=== PATIENT | female | born 1975 | race African-American/Black ===

== ENCOUNTER 2016-04-26 13:55 | Emergency (ER) | payer OTHER ==
[~2016-04-26] VITALS: Ht 162.6 cm; Wt 78.0 kg
[~2016-04-26 13:55] MED LIST: AMIT25TA PO; AMOX500C PO; CARV3.12 PO; CIPR500T94 PO; CLIN-44 PO; CYCL5TAB PO; DYCL5POW MC; HYDR-971 PO; HYDR30CR61 TP; IBUP-1060 PO; LISI10TA2 PO; METR500T PO; ONDA4TAB10 SL; ORPH100T PO; POTA10TA31 PO; TRAM-29 PO; TRAM50TA PO
[2016-04-26 14:03] VITALS: BP 170/86
[2016-04-26] MEDS ORDERED: CLIN-44 PO (14:33)
--- NOTE | 2016-04-26 14:33 | PHYS DOC ---
Past Medical History Past Medical History: CHF, IBS Additional Past Medical Histor: LUPUS Past Surgical History: Hysterectomy Additional Past Surgical Histo: CYST REMOVED FROM BREAST Alcohol Use: None Drug Use: None Adult General Chief Complaint Chief Complaint: DENTAL PROBLEM HPI HPI Patient is a 40 year old female presents emergency department stating that she has having dental pain. She states that she had multiple teeth extracted on the left upper portion of her mouth. She states that she still has the sutures in place. She states that they've been very tender and sore. She states that she has been taken Tylenol for the pain and discomfort. She states that they have provided with hydrocodone for the pain. She states that she is currently out of pain medication at this time. She states that the areas appear to be inflamed. She denies fever, chills or nausea vomiting. There is no discharge or drainage noted. She states that she has had dental work approximately 2 weeks ago she was supposed of revisited the dentist a week ago for sutures to be removed. She states that she had not followed up because she was having increased pain in the wanted to leave the sutures in. She states she has been on a round of antibiotics with penicillin and amoxicillin without relief. Review of Systems Review of Systems Constitutional: Denies fever or chills [] Eyes: Denies change in visual acuity, redness, or eye pain [] HENT: Denies nasal congestion or sore throat. C/o dental pain and discomfort Respiratory: Denies cough or shortness of breath [] Cardiovascular: No additional information not addressed in HPI [] Musculoskeletal: Denies back pain or joint pain [] Integument: Denies rash or skin lesions [] Neurologic: Denies headache, focal weakness or sensory changes [] Allergies Allergies Allergies Coded Allergies Type Severity Reaction Last Updated Verified aspirin Allergy Unknown 02/02/16 Yes Physical Exam Physical Exam Constitutional: Well developed, well nourished, no acute distress, non-toxic appearance. [] HENT: Normocephalic, atraumatic, bilateral external ears normal, oropharynx moist, no oral exudates, nose normal. Lateral tympanic membranes appear to be normal. Throat with no erythematous or drainage noted. Sutures was noted between the #13-15 tooth. Areas appear to be swollen and tender. Drainage noted. Eyes: PERRLA, EOMI, conjunctiva normal, no discharge. [] Neck: Normal range of motion, no tenderness, supple, no stridor. [] Cardiovascular:Heart rate regular rhythm, no murmur [] Lungs & Thorax: Bilateral breath sounds clear to auscultation [] Skin: Warm, dry, no erythema, no rash. [] Back: No tenderness Extremities: No tenderness, no cyanosis, no clubbing, ROM intact, no edema. [] Neurologic: Alert and oriented X 3, normal motor function, normal sensory function, no focal deficits noted. [] Psychologic: Affect normal, judgement normal, mood normal. [] Current Patient Data Vital Signs Vital Signs Date Time Temp Pulse Resp B/P Pulse Ox O2 Delivery O2 Flow Rate FiO2 04/26/16 14:03 97.9 114 20 100 Room Air 97.9 EKG EKG [] Radiology/Procedures Radiology/Procedures [] Course & Med Decision Making Course & Med Decision Making Pertinent Labs and Imaging studies reviewed. (See chart for details) Patient was evaluated for dental pain. Patient was noted to have an allergy to aspirin although she is able to take Tylenol and ibuprofen at home. Obtained narcotic history throat cancer this for the pharmacy. Patient was noted to have had 60 hydrocodone's 7.56 filled on 04/15/19 and then had 16 tablets of hydrocodone 5/325 filled on 04/18/2016 and then had a total of 16 more tablets filled on 04/21/2016 recommended to patient that she may use ibuprofen for pain and discomfort at home. Patient will be provided with clindamycin 450 mg 4 times a day with recommendations to follow up with her dentist tomorrow. A shunt states she has a dental appointment on . Patient will be discharged home in stable condition. Signs and symptoms to return back to emergency department has been provided. Patient agrees with discharge instructions treatment regimens and follow-up recommendations. [] Dragon Disclaimer Dragon Disclaimer This electronic medical record was generated, in whole or in part, using a voice recognition dictation system. Departure Departure Impression: Primary Impression: Pain, dental Additional Impression: Dental abscess Disposition: HOME, SELF-CARE Condition: STABLE Referrals: NEGRITA JONES MD (PCP) Patient Instructions: Dental Abscess, Dental Pain, [id number] Additional Instructions: Activity as tolerated. Medication as prescribed. You may take ibuprofen 800 mg every 8 hours. You may also take Tylenol for pain and discomfort. Follow-up through primary care physician in the next 24 hours. Return back to emergency department sign symptoms of become worse. Scripts Clindamycin Hcl 150 Mg Capsule3 Cap PO QID 10 Days Prov:LANETTE GUERRA NP 04/26/16 Problem Qualifiers LANETTE GUERRA NP Apr 26, 2016 14:33
== END 2016-04-26 14:45 | disposition home or self-care (01) ==
LOC: ER 13:55
DX: K04.7 Periapical abscess without sinus (principal); I50.9 Heart failure, unspecified; Z88.6 Allergy status to analgesic agent
CPT/HCPCS: 99283

== ENCOUNTER → 2016-09-04 | Outpatient (CLI) | payer OTHER ==
--- NOTE | 2016-09-04 11:32 | RAD ---
DATE: 09/04/2016 EXAM: DIGITAL DIAGNOSTIC BILATERAL, BREAST BILATERAL HISTORY: Bilateral, periareolar palpable mass COMPARISON: 02/13/2010 This study was interpreted with the benefit of Computerized Aided Detection (CAD). FINDINGS: Breast Density: HETERO The breast parenchyma Is heterogeneiously dense, which could reduce sensitivity of mammography. Breast parenchyma level C. No dominant mass is seen in either breast. No suspect calcifications are seen. Several lymph nodes are noted in both axilla. Targeted ultrasound to the retroperitoneum periareolar position of the breasts was performed. In addition to images submitted by the technologist a real-time ultrasound examination was performed by me. New graft no mass or abnormality is seen on targeted ultrasound evaluation of either breast IMPRESSION: Benign findings. If there is a discrete, palpable, mass in either breast biopsy may be warranted despite unremarkable imaging BI-RADS CATEGORY: 2 BENIGN FINDING(S) RECOMMENDED FOLLOW-UP: 12M 12 MONTH FOLLOW-UP PQRS compliance statement: Patient information was entered into a reminder system with a target due date 09/05/2027 for the next mammogram. Mammography is a sensitive method for finding small breast cancers, but it does not detect them all and is not a substitute for careful clinical examination. A negative mammogram does not negate a clinically suspicious finding and should not result in delay in biopsying a clinically suspicious abnormality. "Our facility is accredited by the [employer] Mammography Program."
== END | disposition home or self-care (01) ==
LOC: MAMMO 10:16
PROVIDERS: ATTEND Specialist
DX: R92.8 Other abnormal and inconclusive findings on diagnostic imaging of breast (principal)
CPT/HCPCS: 76641; G0204; 77066

== ENCOUNTER 2016-12-16 09:48 | Day surgery (SDC) | payer OTHER ==
[~2016-12-16] VITALS: Ht 162.6 cm; Wt 72.6 kg
--- NOTE | 2016-12-16 06:36 | HP ---
ADMIT DATE: 12/16/2016 HISTORY OF PRESENT ILLNESS: The patient is admitted because of a painful mass in right breast. The patient has had breast biopsies in the past, has fibrocystic breast disease and has recently had a mammogram, which was negative. She has been having quite a bit of pain from a specific area right where the small nodule is and wishes it to be removed. The mammogram was negative, there were no abnormalities, but this mass is there and is tender. PAST MEDICAL HISTORY: Shows normal childhood diseases. She is Allergic TO ASPIRIN. She does have hypertension and also lupus. No history of kidney disease and she is treated for heart disease. SOCIAL HISTORY: The patient does not use illicit drugs and does not smoke or drink. PAST SURGICAL HISTORY: Other than the breast surgery in the past for benign disease, she has not had any surgery. PHYSICAL EXAMINATION: GENERAL: Shows an alert female, in no acute distress. HEAD, EARS, EYES, NOSE, AND THROAT: Grossly normal. BREASTS: Physical examination today only showed the right breast with a small nodule at about the 5 or 6 o'clock position at the areola margin, which was tender. Left breast examined about 3-4 weeks ago was negative. Axillary areas were negative. ABDOMEN: Not examined. CHEST: Clear to auscultation and percussion. HEART: Unremarkable with no murmurs, heaves, friction, rubs or thrills. IMPRESSION: 1. Lupus. 2. Hypertension. 3. Cardiac disease. 4. Fibrocystic breast disease. 5. Painful mass, right breast. LOAN PONCE MD DR: ZAK/antwan JOB#: [id number] / [id number]
[~2016-12-16 09:48] MED LIST changes: -CLIN-44 PO; +CLIN150C14 PO; +DEXAMETHASONE SOD PHOS 20 MG/5 ML VIAL. ONE; +DICY20TA3 PO; +HYDR-2762 PO; +HYDROmorphone 2 MG/ML VIAL IV PRN; +LIDOCAINE 1% 1 ML SYRINGE. ID PRN; +LIDOCAINE 2% PF Vial for OR 5 ML VIAL. ONE; +MIDAZOLAM HCL/PF 2 MG/2 ML VIAL. ONE; +MORPHINE SULFATE 2 MG/ML DISP.SYRIN. IV PRN; +ONDANSETRON PF 4 MG/2 ML VIAL. ONE; +PROCHLORPERAZINE 10 MG/2 ML VIAL. IV PRN; +PROPOFOL 20 ML IV ONE; +SIMV10TA3 PO; -TRAM-29 PO; +TRAM-48 PO; +fentaNYL PF VIAL 100 MCG/2 ML VIAL IV PRN; +fentaNYL PF VIAL 100 MCG/2 ML VIAL ONE
--- NOTE | 2016-12-16 10:04 | PDOC ---
SURGICAL PROGRESS NOTE Subjective Surgeon...............................Ponce Pre-op diagnosis...................painful right breast mass Post-op diagnosis.................painful right breast mass Anesthesia.........................general Procedure...........................breast biopsy Blood loss...........................10 cc Drains.................................none Fluids.................................see anesthesia sheet Condition............................satisfactory LOAN PONCE MD Dec 16, 2016 10:04
--- NOTE | 2016-12-16 10:16 | PDOC ---
SURGICAL PROGRESS NOTE Subjective No change in dictated H&P. LOAN PONCE MD Dec 16, 2016 10:16
[2016-12-16] MEDS ORDERED: ISOSULFAN BLUE 50 MG/5 ML VIAL. SQ ONE (10:19)
[2016-12-16 10:37] LABS: BASO % 1 % (0-3); EOS % 0 % (0-3); HEMATOCRIT 28.9 % (36.0-47.0); HEMOGLOBIN 9.1 g/dL (12.0-15.5); LYMPH # 1.1 x10^3/uL (1.0-4.8); LYMPH % 21 % (24-48); MEAN CORPUSCULAR HEMOGLOBIN 25 pg (25-35); MEAN CORPUSCULAR HGB CONC 31 g/dL (31-37); MEAN CORPUSCULAR VOLUME 78 fL (79-100); MONO % 6 % (0-9); NEUT % 72 % (31-73); PLATELET COUNT 326 x10^3/uL (140-400); RED BLOOD COUNT 3.69 x10^6/uL (3.50-5.40); RED CELL DISTRIBUTION WIDTH 15.2 % (11.5-14.5); WHITE BLOOD COUNT 5.1 x10^3/uL (4.0-11.0)
[2016-12-16] MEDS: IV RINGERS,LACTATED 1000ML 1,000 ML IV SCH ×2 (10:39→12:58)
[2016-12-16 10:46] LABS: INR 1.1 (0.8-1.1); PROTHROMBIN TIME PATIENT 13.4 SEC (11.7-14.0)
[2016-12-16 10:52] LABS: CALCIUM 8.6 mg/dL (8.5-10.1); CREATININE 0.9 mg/dL (0.6-1.0); GFR 83.1; POTASSIUM 3.7 mmol/L (3.5-5.1)
[2016-12-16 10:57] LABS: ALBUMIN/GLOBULIN RATIO 0.5 (1.0-1.7); TOTAL BILIRUBIN 0.1 mg/dL (0.2-1.0); TOTAL PROTEIN 8.6 g/dL (6.4-8.2)
[2016-12-16] MEDS ORDERED: PHENYLEPHRINE in 0.9% NACL PF 1 MG/10 ML DISP.SYRIN. IV ONE ×2 (11:09→12:03)
[2016-12-16] MEDS ORDERED: ePHEDrine PF IN SALINE 50 MG/5 ML DISP.SYRIN IV ONE (11:23)
[2016-12-16] MEDS ORDERED: SEVOFLURANE 61 TO 120 MINUTES. IH ONE (11:33)
[2016-12-16] MEDS ORDERED: fentaNYL PF VIAL 100 MCG/2 ML VIAL ONE ×2 (12:15→12:45)
[2016-12-16] MEDS: fentaNYL PF VIAL 100 MCG/2 ML VIAL IV PRN ×3 (12:19→12:47)
[2016-12-16] MEDS ORDERED: HYDROcodone/APAP 5/325MG 1 TAB TABLET PO ONE (12:45)
[2016-12-16] MEDS ORDERED: HYDR-2758 PO (13:19)
[2016-12-16 14:00] VITALS: BP 129/80
--- NOTE | 2016-12-16 14:40 | OP ---
DATE OF SURGERY: 12/16/2016 SURGEON: Ananda Ponce MD. PREOPERATIVE DIAGNOSIS: Painful mass medial aspect of right breast at the areola margin at the 3-4 o'clock position. POSTOPERATIVE DIAGNOSIS: Painful mass medial aspect of right breast at the areola margin at the 3-4 o'clock position. ANESTHESIA: General with LMA in place. PROCEDURE: Excision mass, right breast. TECHNIQUE: Within under general anesthesia, the patient was properly prepped and draped in routine fashion. The lesion had been marked prior and was just at the areola margin between 3 and 4 o'clock position. We carried and therefore made a circumareolar incision between 2 and 6 o'clock position and carried it down through the skin using a 15 blade. Went into the subcutaneous fat down to the breast. We had previously injected methylene blue just prior to the incision to make certain that we put the methylene blue where the mass was. We then slowly pulled up this with a clamp and using retractors to keep the skin edges and subcutaneous away divided the breast tissue there. We simply and slowly removed the breast tissue where the clamp was and where the methylene blue was, taken about an area about 2 cm x 5 cm. We wanted to make sure we got all this painful area out. This having been done, we then approximated the breast tissue using 3-0 and 4-0 Vicryl and used a subcuticular 5-0 Vicryl for the skin to get a good cosmetic result. The procedure was then terminated as the bleeding had been minimum and sterile dressing was applied. The blood loss was about 3-4 mL. Fluids given can be obtained from the anesthesia sheet. No drains were used and the condition of the patient was satisfactory as she was returned to the recovery room. ANANDA PONCE MD DR: ZAK/antwan JOB#: [id number] / [id number]
--- NOTE | 2016-12-17 15:51 | PATHOLOGY ---
PATHOLOGY REPORT * * * * * * * * FINAL DIAGNOSIS: A. Breast, "right breast biopsy," lumpectomy: - Fibroadenomatous nodule measuring 0.9 cm in greatest dimension completely excised. - Fibrocystic changes with usual ductal hyperplasia without atypia, sclerosing adenosis and papillomatosis. - All surgical resection margins are free. B. Breast, "superior portion of right breast mass," lumpectomy: - Fibrocystic changes with usual ductal hyperplasia without atypia and sclerosing adenosis. - Fibroadenomatous nodule measuring 0.3cm - All surgical resection margins are free. ([facility]:mgr; 12/17/2016) COMMENT: This case will also receive departmental review and if there are changes then an additional report will follow. REPORT ELECTRONICALLY SIGNED BY: Federico Munoz M.D. DATE/TIME: 12/17/2016 15:51 * * * * * * * * GROSS PATHOLOGY: A. The specimen is received in formalin, designated "Robert Renteria, right breast biopsy" and consists of an ovoid segment of rubbery, yellow correa, fibrofatty breast tissue, which weighs 13.6 g and measures 6.5 x 3.2 x 1.3 cm. The segment shows focal bright blue green discoloration. There is a rubbery nodule palpable near the midportion. The margins are inked with black ink and the specimen is serially sectioned to reveal a predominantly fatty appearing cut surface. There is a rubbery nodule, measuring approximately 0.9 cm in maximum dimensions near one margin in the area of bright blue discoloration. The specimen is submitted entirely in cassettes A1 through A8. The cold ischemic time is 1 minute, total fixation time is 10 hours and 22 minutes. B. The specimen is received in formalin, designated "superior portion of right breast mass" and consists of a flat, irregular segment of yellow hartman, fibrofatty breast tissue which weighs 4.1 g and measures 3.5 x 2.7 x 0.8. There is a poorly defined area of faint blue green discoloration. The margins are inked with black ink and the specimen is serially sectioned to reveal pink correa fibrous breast tissue with no areas of unusual firmness or granularity. The material is submitted entirely in cassettes B1 through B3. The cold ischemic time is 0 minutes and total fixation time is 10 hours and 22 minutes. ([facility]; 12/16/16) INITIAL CPT CODE(S): 79651(2) Professional services performed by [facility] at [address] [address] Technical services performed by [facility] at [address] [place] [address], [address], [place] [address]. SPECIMEN(S) RECEIVED: A.Right breast biopsy B.Superior portion right breast mass CLINICAL HISTORY: Breast mass PATIENT: ROBERT RENTERIA /AGE: 609/20/1975 (Age: 41) PATIENT #: [id number] ALT CASE #: SPECIMEN COLLECTION DATE: 12/16/2016 SPECIMEN RECEIVED DATE: 12/16/2016 [facility] - [address] [place] [address] - PHONE: [phone] * * * END OF REPORT * * *
== END 2016-12-16 14:15 | disposition home or self-care (01) ==
LOC: SURG 09:48
PROVIDERS: ATTEND Specialist
DX: D24.1 Benign neoplasm of right breast (principal); E78.00 Pure hypercholesterolemia, unspecified; E66.9 Obesity, unspecified; Z90.710 Acquired absence of both cervix and uterus; E03.9 Hypothyroidism, unspecified; I11.0 Hypertensive heart disease with heart failure; M32.9 Systemic lupus erythematosus, unspecified; F41.9 Anxiety disorder, unspecified; I50.9 Heart failure, unspecified; D64.9 Anemia, unspecified; Z88.8 Allergy status to other drugs, medicaments and biological substances; Z98.890 Other specified postprocedural states
CPT/HCPCS: 19120; 36415; 80053; 85025; 85610; J0690; J1100; J2250; J2370; J2405; J2704; J3010; Q9968; 88307; C1769; J7120; J2001

== ENCOUNTER 2017-02-22 00:43 | Emergency (ER) | payer OTHER ==
[~2017-02-22] VITALS: Ht 162.6 cm; Wt 73.5 kg
[~2017-02-22 00:43] MED LIST changes: -DEXAMETHASONE SOD PHOS 20 MG/5 ML VIAL. ONE; +HYDR-2758 PO; -HYDROmorphone 2 MG/ML VIAL IV PRN; -LIDOCAINE 1% 1 ML SYRINGE. ID PRN; -LIDOCAINE 2% PF Vial for OR 5 ML VIAL. ONE; -MIDAZOLAM HCL/PF 2 MG/2 ML VIAL. ONE; -MORPHINE SULFATE 2 MG/ML DISP.SYRIN. IV PRN; -ONDANSETRON PF 4 MG/2 ML VIAL. ONE; -PROCHLORPERAZINE 10 MG/2 ML VIAL. IV PRN; -PROPOFOL 20 ML IV ONE; -fentaNYL PF VIAL 100 MCG/2 ML VIAL IV PRN; -fentaNYL PF VIAL 100 MCG/2 ML VIAL ONE
[2017-02-22 01:00] VITALS: BP 188/103
--- NOTE | 2017-02-22 02:34 | RAD ---
Right breast ultrasound February 22, 2017 INDICATION: Breast pain status post breast biopsy last month. COMPARISON: Bilateral breast ultrasound September 04, 2016 TECHNIQUE: Sonographic imaging of the right breast in the upper inner quadrant, 12:00 position, 3:00 position, lower inner quadrant, 6:00 position, lower outer quadrant, 9:00 position, upper outer quadrant, and right axilla was performed. Evaluation in the right nipple region was performed. FINDINGS: There is no solid or cystic mass identified. No microcalcifications or areas of architectural distortion. In the right axilla, morphologically benign lymph nodes are identified measuring up to 1.7 cm by long axis. Normal fatty renal rina are identified. IMPRESSION: No solid or cystic mass is identified. Correlation with mammography may be of benefit. Electronically signed by: Rosalva Hutchins MD (02/22/2017 2:30 AM) [facility]
[2017-02-22] MEDS ORDERED: IBUP-1007 PO (03:01)
--- NOTE | 2017-02-22 03:01 | PHYS DOC ---
Past Medical History Past Medical History: CHF, Hypertension, IBS Additional Past Medical Histor: LUPUS Past Surgical History: Hysterectomy Additional Past Surgical Histo: CYST REMOVED FROM BREAST Alcohol Use: None Drug Use: None Adult General Chief Complaint Chief Complaint: BREAST PROBLEM HPI HPI Patient is a 41 year old female who presents with breast pain. The patient underwent lumpectomy by Dr. Ponce in January for painful breast lump which was found to be fibroadenoma. She states since the time of surgery she has had pain at the surgical site & her breast appears abnormal. She denies fevers/ chills, erythema/warmth/swelling, nipple discharge, vomiting. She has not followed up with her surgeon. She ran out of the percocet prescribed at time of surgery. She has history of fibrocystic breast disease. Review of Systems Review of Systems Constitutional: Denies fever or chills HENT: Denies nasal congestion or sore throat Respiratory: Denies cough or shortness of breath Cardiovascular: Denies chest pain Breast: reports right breast pain GI: Denies abdominal pain, nausea, vomiting Musculoskeletal: Denies back pain or joint pain Integument: Denies rash Neurologic: Denies headache All other systems were reviewed and found to be within normal limits, except as documented in this note. Allergies Allergies Allergies Coded Allergies Type Severity Reaction Last Updated Verified aspirin Allergy Intermediate Rash 12/16/16 Yes Physical Exam Physical Exam Constitutional: Well developed, well nourished, no acute distress, non-toxic appearance. HENT: Normocephalic, atraumatic, bilateral external ears normal, oropharynx moist, nose normal. Eyes:conjunctiva normal, no discharge. Cardiovascular: no edema. Lungs & Thorax: no respiratory distress. right breast no skin changes, no erythema/warmth/swelling, no nipple discharge, no wound, no palpable mass at 12: 00 position or 6:00 position where patient reports discomfort, no nipple discharge. Abdomen: nondistended. Skin: Warm, dry, no erythema, no rash. Extremities: no deformity Neurologic: Alert and oriented X 3 Current Patient Data Vital Signs Vital Signs Date Time Temp Pulse Resp B/P (MAP) Pulse Ox O2 Delivery O2 Flow Rate FiO2 02/22/17 01:00 98.8 103 16 188/103 (131) 99 Room Air 98.8 Lab Values Laboratory Tests Test 02/22/17 01:48 POC Urine HCG, Qualitative Hcg negative (Negative) EKG EKG [] Radiology/Procedures Radiology/Procedures PROCEDURE: BREAST RIGHT Right breast ultrasound February 22, 2017 INDICATION: Breast pain status post breast biopsy last month. COMPARISON: Bilateral breast ultrasound September 04, 2016 TECHNIQUE: Sonographic imaging of the right breast in the upper inner quadrant, 12:00 position, 3:00 position, lower inner quadrant, 6:00 position, lower outer quadrant, 9:00 position, upper outer quadrant, and right axilla was performed. Evaluation in the right nipple region was performed. FINDINGS: There is no solid or cystic mass identified. No microcalcifications or areas of architectural distortion. In the right axilla, morphologically benign lymph nodes are identified measuring up to 1.7 cm by long axis. Normal fatty renal rina are identified. IMPRESSION: No solid or cystic mass is identified. Correlation with mammography may be of benefit. Electronically signed by: Trey Silver MD (02/22/2017 2:30 AM) [facility] DICTATED and SIGNED BY: TREY SILVER MD DATE: 02/22/17 0227 [] Course & Med Decision Making Course & Med Decision Making Pertinent Labs and Imaging studies reviewed. (See chart for details) The patient presents with postoperative breast pain after lumpectomy. Obtained ultrasound which shows no evidence of mass, abscess, other abnormality. No sign of infection with external exam. Ordered urine HCG but patient did not provide urine; however, she states she has had hysterectomy. Recommend tylenol or ibuprofen for pain, follow up with Dr. Ponce this week. Come back for sign of infection or otherwise worsening condition. Discharged home in stable condition. Dragon Disclaimer Dragon Disclaimer This electronic medical record was generated, in whole or in part, using a voice recognition dictation system. Departure Departure Impression: Primary Impression: Breast pain Disposition: 01 HOME, SELF-CARE Condition: STABLE Referrals: NO PCP (PCP) LOAN PONCE MD Patient Instructions: Breast Tenderness Additional Instructions: You were seen in the emergency department today for breast pain. The ultrasound did not show any concerning findings. Please take ibuprofen as needed for pain. Follow up with Dr. Ponce this week. He may recommend additional tests or treatments. Scripts Ibuprofen (IBUPROFEN) 600 Mg Tablet 600 MG PO PRN Q6HRS Y for INFLAMMATION, #15 TAB Prov: ENRRIQUE BETANCOURT MD 02/22/17 ENRRIQUE BETANCOURT MD Feb 22, 2017 03:01
== END 2017-02-22 03:10 | disposition home or self-care (01) ==
LOC: ER 00:43
DX: N64.4 Mastodynia (principal); I11.0 Hypertensive heart disease with heart failure; I50.9 Heart failure, unspecified; K58.9 Irritable bowel syndrome, unspecified; M32.9 Systemic lupus erythematosus, unspecified; Z90.710 Acquired absence of both cervix and uterus; Z98.890 Other specified postprocedural states; Z88.6 Allergy status to analgesic agent
CPT/HCPCS: 76641; 81025; 99284-25

== ENCOUNTER 2017-09-28 02:53 | Emergency (ER) | payer OTHER ==
[2017-09-28 03:29] LABS: BILIRUBIN,URINE NEGATIVE (NEG); CLARITY,URINE TURBID; COLOR,URINE YELLOW; GLUCOSE,URINE NEGATIVE (NEG); NITRITE,URINE NEGATIVE (NEG); PROTEIN,URINE >=300 mg/dL (NEG-TRACE)
[2017-09-28 03:34] LABS: BACTERIA,URINE MANY /HPF (0-FEW); RBC,URINE OCC /HPF (0-2); SQUAMOUS EPITHELIAL CELL,UR MANY /LPF; WBC,URINE >40 /HPF (0-4)
[2017-09-28 03:35] LABS: TRICHOMONAS,URINE PRESENT
[2017-09-28 03:37] LABS: ADD MAN DIFF? NO
[2017-09-28 03:42] LABS: BASO % 1 % (0-3); EOS % 0 % (0-3); HEMATOCRIT 27.6 % (36.0-47.0); HEMOGLOBIN 8.8 g/dL (12.0-15.5); LYMPH # 1.6 x10^3/uL (1.0-4.8); LYMPH % 29 % (24-48); MEAN CORPUSCULAR HEMOGLOBIN 23 pg (25-35); MEAN CORPUSCULAR HGB CONC 32 g/dL (31-37); MEAN CORPUSCULAR VOLUME 71 fL (79-100); MONO # 0.5 x10^3/uL (0.0-1.1); MONO % 8 % (0-9); NEUT # 3.4 x10^3uL (1.8-7.7); NEUT % 62 % (31-73); PLATELET COUNT 291 x10^3/uL (140-400); RED BLOOD COUNT 3.87 x10^6/uL (3.50-5.40); RED CELL DISTRIBUTION WIDTH 16.8 % (11.5-14.5); WHITE BLOOD COUNT 5.5 x10^3/uL (4.0-11.0)
[2017-09-28 03:50] LABS: ANION GAP 9 (6-14); BLOOD UREA NITROGEN 22 mg/dL (7-20); CALCIUM 8.4 mg/dL (8.5-10.1); CARBON DIOXIDE 25 mmol/L (21-32); CHLORIDE 103 mmol/L (98-107); CREATININE 0.7 mg/dL (0.6-1.0); GFR 110.5; GLUCOSE 103 mg/dL (70-99); POTASSIUM 3.6 mmol/L (3.5-5.1); SODIUM 137 mmol/L (136-145)
[2017-09-28 04:49] LABS: LACTIC ACID 0.5 mmol/L (0.4-2.0)
[2017-09-28 11:13] LABS: PLT ESTIMATE ADEQUATE (ADEQUATE)
[2017-09-28 11:14] LABS: ANISOCYTOSIS SLIGHT; MICROCYTOSIS MOD
== END 2017-09-28 04:58 | disposition home or self-care (01) ==
LOC: ER 02:53
DX: N39.0 Urinary tract infection, site not specified (principal); I50.9 Heart failure, unspecified; I11.0 Hypertensive heart disease with heart failure; Z90.710 Acquired absence of both cervix and uterus; Z79.899 Other long term (current) drug therapy; Z88.6 Allergy status to analgesic agent
CPT/HCPCS: 36415; 80048; 81001; 83605; 85025; 87086; 96365; 99284-25; J0690

== ENCOUNTER 2017-11-12 04:18 | Inpatient (IN) | payer OTHER ==
[2017-11-12 04:33] LABS: ADD MAN DIFF? NO
[2017-11-12 04:44] LABS: ANION GAP 4 (6-14); BLOOD UREA NITROGEN 19 mg/dL (7-20); BUN/CREATININE RATIO 24 (6-20); CARBON DIOXIDE 30 mmol/L (21-32); CHLORIDE 105 mmol/L (98-107); CREATININE 0.8 mg/dL (0.6-1.0); GFR 94.7; GLUCOSE 108 mg/dL (70-99); POTASSIUM 3.6 mmol/L (3.5-5.1); SODIUM 139 mmol/L (136-145)
[2017-11-12 04:45] LABS: ETHANOL < 10 mg/dL (0-10)
[2017-11-12 04:50] LABS: ALBUMIN/GLOBULIN RATIO 0.5 (1.0-1.7); ALK PHOS 95 U/L (46-116); ALT (SGPT) 18 U/L (14-59); AST (SGOT) 25 U/L (15-37); MAGNESIUM 2.5 mg/dL (1.8-2.4); TOTAL BILIRUBIN 0.2 mg/dL (0.2-1.0)
[2017-11-12 04:51] LABS: BASO % 0 % (0-3); EOS % 0 % (0-3); HEMATOCRIT 28.9 % (36.0-47.0); HEMOGLOBIN 8.9 g/dL (12.0-15.5); LYMPH # 1.3 x10^3/uL (1.0-4.8); LYMPH % 17 % (24-48); MEAN CORPUSCULAR HEMOGLOBIN 23 pg (25-35); MEAN CORPUSCULAR HGB CONC 31 g/dL (31-37); MEAN CORPUSCULAR VOLUME 74 fL (79-100); MONO # 0.4 x10^3/uL (0.0-1.1); MONO % 5 % (0-9); NEUT # 6.2 x10^3uL (1.8-7.7); NEUT % 78 % (31-73); PLATELET COUNT 264 x10^3/uL (140-400); RED BLOOD COUNT 3.93 x10^6/uL (3.50-5.40); WHITE BLOOD COUNT 7.9 x10^3/uL (4.0-11.0)
[2017-11-12 04:52] LABS: TROPONINI < 0.017 ng/mL (0.000-0.055)
[2017-11-12 04:56] LABS: PARTIAL THROMBOPLASTIN TIME 26 SEC (24-38); PROTHROMBIN TIME PATIENT 12.7 SEC (11.7-14.0)
[2017-11-12 04:58] LABS: CKMB INDEX 0.6 % (0-4); CREATINE KINASE 328 U/L (26-192)
[2017-11-12 04:58] LABS: NT-PRO BNP 130 pg/mL (0-124)
[2017-11-12] MEDS: IV NORMAL SALINE 1000ML BAG 1,000 ML IV (05:00)
[2017-11-12 05:03] LABS: BILIRUBIN,URINE NEGATIVE (NEG); CLARITY,URINE TURBID; COLOR,URINE YELLOW; GLUCOSE,URINE NEGATIVE (NEG); NITRITE,URINE POSITIVE (NEG); PH,URINE 5.5; PROTEIN,URINE >=300 mg/dL (NEG-TRACE); UROBILINOGEN,URINE 0.2 mg/dL (0.2 mg/dL)
[2017-11-12 05:09] LABS: BARBITURATES NEG (NEG); BENZODIAZEPINES POS (NEG); CANNABINOIDS POS (NEG); COCAINE NEG (NEG); METHADONE NEG (NEG); OPIATES POS (NEG); PHENCYCLIDINE NEG (NEG)
[2017-11-12 05:10] LABS: AMPHETAMINE/METHAMPHETAMINE NEG (NEG); ETHANOL, URINE NEG (NEG)
[2017-11-12 05:14] LABS: BACTERIA,URINE MANY /HPF (0-FEW); RBC,URINE OCC /HPF (0-2); SQUAMOUS EPITHELIAL CELL,UR MOD /LPF; WBC,URINE TNTC /HPF (0-4)
[2017-11-12 05:38] LABS: LACTIC ACID 0.8 mmol/L (0.4-2.0)
[2017-11-12] MEDS ORDERED: ACETAMINOPHEN 325 MG TABLET. PO (05:45)
[2017-11-12] MEDS ORDERED: ONDANSETRON PF 4 MG/2 ML VIAL. IV (05:45)
[2017-11-12] MEDS: KETOROLAC 15 MG/ML VIAL. IV (06:04)
[2017-11-12 07:10] LABS: ANISOCYTOSIS PRESENT; HYPOCHROMIA PRESENT; MICROCYTOSIS PRESENT; PLT ESTIMATE ADEQUATE (ADEQUATE)
[2017-11-12 08:54] LABS: AMMONIA 15 mcmol/L (11-34)
[2017-11-12 09:04] LABS: TROPONINI < 0.017 ng/mL (0.000-0.055)
== END 2017-11-12 19:01 | disposition home or self-care (01) | DRG 690 ==
LOC: ER 04:18 → 6 SOUTH 05:40
DX: N39.0 Urinary tract infection, site not specified (principal); I11.0 Hypertensive heart disease with heart failure; I50.9 Heart failure, unspecified; K58.9 Irritable bowel syndrome, unspecified; F12.90 Cannabis use, unspecified, uncomplicated; Z83.3 Family history of diabetes mellitus; Z90.710 Acquired absence of both cervix and uterus; Z88.8 Allergy status to other drugs, medicaments and biological substances
CPT/HCPCS: 36415; 70450; 71045; 80053; 80307; 81001; 82140; 82553; 83605; 83735; 83880; 84484; 85025; 85610; 85730; 87086; 93005; 96365; 96375; 99285; 99285-25; G0480; J0690; J1885; J7030

== ENCOUNTER → 2018-09-16 | Outpatient (CLI) | payer OTHER ==
[2017-12-31 15:00] VITALS: BP 136/85
[~2018-09-16] MED LIST changes: +CETI10TA22 PO; -HYDR-2758 PO; +HYDR-2761 PO; -HYDR-2762 PO; +HYDR-2765 PO; +HYDR-3164 PO; -HYDR-971 PO; +IBUP-1007 PO; +POTA10TA12 PO; +PROP20TA PO; +SULF1TAB24 PO
[2018-09-16 16:03] LABS: BASO % 1 % (0-3); EOS % 1 % (0-3); HEMATOCRIT 28.4 % (36.0-47.0); HEMOGLOBIN 8.9 g/dL (12.0-15.5); LYMPH # 1.4 x10^3/uL (1.0-4.8); LYMPH % 40 % (24-48); MEAN CORPUSCULAR HEMOGLOBIN 24 pg (25-35); MEAN CORPUSCULAR HGB CONC 31 g/dL (31-37); MEAN CORPUSCULAR VOLUME 76 fL (79-100); MONO # 0.4 x10^3/uL (0.0-1.1); MONO % 11 % (0-9); NEUT # 1.6 x10^3uL (1.8-7.7); NEUT % 47 % (31-73); PLATELET COUNT 281 x10^3/uL (140-400); RED BLOOD COUNT 3.74 x10^6/uL (3.50-5.40); RED CELL DISTRIBUTION WIDTH 14.6 % (11.5-14.5); WHITE BLOOD COUNT 3.4 x10^3/uL (4.0-11.0)
[2018-09-16 16:53] LABS: ALBUMIN 2.8 g/dL (3.4-5.0); ALBUMIN/GLOBULIN RATIO 0.5 (1.0-1.7); CALCIUM 8.7 mg/dL (8.5-10.1); CREATININE 0.8 mg/dL (0.6-1.0); GFR 94.7; POTASSIUM 3.8 mmol/L (3.5-5.1); TOTAL BILIRUBIN 0.1 mg/dL (0.2-1.0); TOTAL PROTEIN 8.6 g/dL (6.4-8.2)
[2018-09-17 00:08] LABS: THYROXINE 5.1 ug/dL (4.5-12.0)
== END | disposition home or self-care (01) ==
LOC: LAB 14:30
PROVIDERS: ATTEND Internal Medicine Cardiovascular Disease
DX: I11.9 Hypertensive heart disease without heart failure (principal); E78.2 Mixed hyperlipidemia; M32.9 Systemic lupus erythematosus, unspecified; F41.1 Generalized anxiety disorder; R01.2 Other cardiac sounds
CPT/HCPCS: 36415; 80053; 84436; 84479; 85025; 85651; 86141; 86703; 86705; 86709; 86803; 87340

== ENCOUNTER 2018-10-11 13:47 | Emergency (ER) | payer OTHER ==
[~2018-10-11] VITALS: Ht 162.6 cm; Wt 68.0 kg
[2018-10-11 13:53] VITALS: BP 163/81
[2018-10-11] MEDS ORDERED: HYDROcodone/APAP 5/325MG 1 TAB TABLET PO ONE (14:15)
[2018-10-11] MEDS ORDERED: KETOROLAC 30 MG/ML VIAL. IM ONE (14:15)
[2018-10-11] MEDS ORDERED: LIDOCAINE 2% VISCOUS 15 ML SOLUTION. SWSW ONE (14:15)
[2018-10-11] MEDS ORDERED: AMOX1TAB61 PO (14:22)
--- NOTE | 2018-10-11 14:23 | PHYS DOC ---
Past Medical History Past Medical History: CHF, Hypertension, IBS Additional Past Medical Histor: LUPUS Past Surgical History: Hysterectomy Additional Past Surgical Histo: CYST REMOVED FROM BREAST Smoking: Cigarettes, Quit Greater Than 1 Year Alcohol Use: None Drug Use: Marijuana Adult General Chief Complaint Chief Complaint: DENTAL PROBLEM [facility] HPI Patient is a 43 year old female presents with dental pain has been ongoing for a week. The patient states she chipped her tooth a month ago and it has been having exudate come out where the chipped tooth is. Patient rates his pain as 8 out of 10 and throbbing. The patient took ibuprofen and Advil not knowing that they're the same medicine at around 8:00 this morning. Had a Epifanio however the dentist is no longer practicing. Review of Systems Review of Systems Constitutional: Denies fever or chills [] Eyes: Denies change in visual acuity, redness, or eye pain [] HENT: Denies nasal congestion or sore throat. Reports dental pain. Respiratory: Denies cough or shortness of breath [] Cardiovascular: No additional information not addressed in HPI [] GI: Denies abdominal pain, nausea, vomiting, bloody stools or diarrhea [] : Denies dysuria or hematuria [] Musculoskeletal: Denies back pain or joint pain [] Integument: Denies rash or skin lesions [] Neurologic: Denies headache, focal weakness or sensory changes [] Endocrine: Denies polyuria or polydipsia [] Complete systems were reviewed and found to be within normal limits, except as documented in this note. Current Medications Current Medications Current Medications Medications (Trade) Dose Ordered Sig/[place] Start Time Stop Time Status Last Admin Dose Admin Acetaminophen/ Hydrocodone Bitart (Lortab 5/325) 1 tab 1X ONCE 10/11/18 14:15 10/11/18 14:16 UNV Allergies Allergies Allergies Coded Allergies Type Severity Reaction Last Updated Verified aspirin Allergy Intermediate Rash 12/16/16 Yes Physical Exam Physical Exam Constitutional: Well developed, well nourished, no acute distress, non-toxic appearance. [] HENT: Normocephalic, atraumatic, bilateral external ears normal, oropharynx moist, mouth is missing all upper teeth, teeth 28-32, and teeth 21-17, tooth 27 is chipped, and swollen at the gum, nose normal. [] Eyes: PERRLA, EOMI, conjunctiva normal, no discharge. [] Neck: Normal range of motion, no tenderness, supple, no stridor. [] Cardiovascular:Heart rate regular rhythm, no murmur [] Lungs & Thorax: Bilateral breath sounds clear to auscultation [] Abdomen: Bowel sounds normal, soft, no tenderness, no masses, no pulsatile masses. [] Skin: Warm, dry, no erythema, no rash. [] Back: No tenderness, no CVA tenderness. [] Extremities: No tenderness, no cyanosis, no clubbing, ROM intact, no edema. [] Neurologic: Alert and oriented X 3, normal motor function, normal sensory function, no focal deficits noted. [] Psychologic: Affect normal, judgement normal, mood normal. [] Current Patient Data Vital Signs Vital Signs Date Time Temp Pulse Resp B/P (MAP) Pulse Ox O2 Delivery O2 Flow Rate FiO2 10/11/18 13:53 98.1 113 20 163/81 (108) 97 Room Air 98.1 EKG EKG [] Radiology/Procedures Radiology/Procedures [] Course & Med Decision Making Course & Med Decision Making Pertinent Labs and Imaging studies reviewed. (See chart for details) Appears to have dental abscess will start on Augmentin. Will give Toradol, [facility], and Viscous lidocaine for pain. Discussed with patient, checking with [facility] for treatment. Dragon Disclaimer Dragon Disclaimer This electronic medical record was generated, in whole or in part, using a voice recognition dictation system. Departure Departure Impression: Primary Impression: Dental abscess Disposition: 01 HOME, SELF-CARE Condition: STABLE Referrals: JOSH FAM MD (PCP) Patient Instructions: Dental Abscess Additional Instructions: Thank you for visiting [facility]. We appreciate you trusting us with your care. If any additional problems come up don't hesitate to return to visit us. Please follow up with your primary care provider so they can plan additional care if needed and know about the problem that you had. If symptoms worsen come back to the Emergency Department. Any concerning symptoms that start such as chest pain, shortness of Air, weakness or numbness on one side of the body, running high fevers or any other concerning symptoms return to the ER. You have been prescribed an antibiotic today to help fight your infection. Please take all of the antibiotic as directed. If after 48 hours the infection is not improving, please return for more care. If the infection worsens, return to ER for additional care. Please fill your medications at any pharmacy and follow the prescription instructions. Scripts Amoxicillin/Potassium Clav (AUGMENTIN 875-125 TABLET) 1 Each Tablet 1 TAB PO BID, #14 TAB Prov: JOSH PAULINO APRN 10/11/18 JOSH PAULINO APRN Oct 11, 2018 14:23
== END 2018-10-11 14:50 | disposition home or self-care (01) ==
LOC: ER 13:47
DX: K04.7 Periapical abscess without sinus (principal); I11.0 Hypertensive heart disease with heart failure; I50.9 Heart failure, unspecified; K58.9 Irritable bowel syndrome, unspecified; F17.210 Nicotine dependence, cigarettes, uncomplicated; Z88.6 Allergy status to analgesic agent
CPT/HCPCS: 96372; 99283; J1885

== ENCOUNTER 2019-02-22 16:59 | Emergency (ER) | payer OTHER ==
[2018-11-17 21:40] VITALS: BP 180/122
[~2019-02-22 16:59] MED LIST changes: +AMOX1TAB61 PO; +SIMV10TA15 PO; -SIMV10TA3 PO
== END 2019-02-22 18:31 | disposition left against medical advice (07) ==
LOC: ER 16:59
DX: M79.10 Myalgia, unspecified site (principal); Z53.21 Procedure and treatment not carried out due to patient leaving prior to being seen by health care provider